=== PATIENT | male | born 2000 | race Caucasian/White ===

== ENCOUNTER 2020-04-10 07:46 | Emergency (ER) | payer OTHER, SELFPAY ==
--- NOTE | ~2020-04-10 | CT_ITS ---
EXAMINATION: CT abdomen pelvis w con EXAM DATE: 04/10/2020 10:30 INDICATION: Low abdominal pain. TECHNIQUE: Spiral CT of the abdomen and pelvis was performed without contrast. Axial, coronal and s agittal images were reviewed. The dose-length product (DLP) for this examination was 233.85 mGy-cm. The exposure was tailored according to patient size (auto mA exposure control), and iterative recons truction (ASIR) was used as additional dose reduction technique. There is no prior study for compari son. FINDINGS: There is mild periportal edema, nonspecific finding. The liver, spleen, adrenal glands and pancreas are otherwise unremarkable. Gallbladder is unremarkable. No biliary obstruction. Portal and splenic veins are patent. Kidneys enhance symmetrically. There is no hydronephrosis. The pros haynes is unremarkable. The bladder is unremarkable. There is no retroperitoneal or pelvic lymphadeno inés. The appendix is normal. The stomach and small bowel are unremarkable. There is moderate amount of c olonic stool. No free intraperitoneal gas. The heart is normal in size. There are no pericardial or pleural effusions. The lung bases are unremarkable. The bones are unremarkable. IMPRESSION: 1. Moderate amount of colonic stool. 2. Mild nonspecific periportal edema. Reviewed, dictated and finalized at location B.
[2020-04-10 07:51] VITALS: BP 110/67; PULSE 80; RESP 14; TEMP 36.7; O2SAT 100
--- NOTE | 2020-04-10 07:59 | ED.ABDPAIN ---
HPI - Abdominal Pain General Chief Complaint: Abdominal Pain Stated Complaint: abd pain Time Seen by Provider: 04/10/20 07:50 Source: patient Mode of arrival: ambulatory Limitations: no limitations History of Present Illness HPI narrative: This patient is a 19 year old male who presents for evaluation of lower abdominal pain. He states he woke up this morning with lower abdominal pain. This pain is worse when ever he stands up or stretches. He has not taken any medication for pain and he states he has minimal pain since he is laying still. He denies associated nausea, vomiting, fever, chills or diarrhea. His last bowel movement yesterday. MD elicited complaint: abdominal pain Onset (ago): hour(s) Location: pelvis Quality: cramping Radiation: none Exacerbating factors: movement Related Data Home Medications Medication Instructions Recorded Confirmed No Home Medications 04/10/20 04/10/20 Allergies Allergy/AdvReac Type Severity Reaction Status Date / Time No Known Allergies Allergy Verified 04/10/20 08:36 Review of Systems Review of Systems: All systems reviewed & are unremarkable except as noted in HPI and below Constitutional: Constitutional: Denies chills and Denies fever(s) Gastrointestinal: Gastrointestinal: Reports abdominal pain, Denies constipation, Denies diarrhea, Denies nausea and Denies vomiting Genitourinary: Genitourinary: Denies hematuria, Denies oliguria, Denies dysuria and Denies urinary frequency Musculoskeletal: Musculoskeletal: Denies back pain PMFSH Past Medical History Medical History (Updated 04/10/20 @ 10:57 by Erum Lemus MD) No significant medical problems Surgical History Surgical History (Updated 04/10/20 @ 08:00 by Erum Lemus MD) No pertinent past surgical history Family History Family History (Updated 12/01/17 @ 11:09 by DOCTOR UNKNOWN) Mother Patient's mother is in good health Father Patient's father is in good health Sibling Patient's brother is in good health Social History Social History Gender identity (if verbalized by the patient): Male Exam Narrative: Exam Narrative: GENERAL: Well-appearing, well-nourished, and in no acute distress. HEAD: Normocephalic, atraumatic EYES: PERRLA and EOMI, conjunctiva clear without discharge THROAT:Mucous membranes moist, Oropharynx normal without erythema, exudate, peritonsillar swelling or fluctuance NECK: Supple, without lymphadenopathy or mass RESPIRATORY: No respiratory distress, Airway patent, Respirations non-labored, Clear to auscultation without rales, rhonchi or wheeze HEART: Regular rate and rhythm. No murmur heard. Normal peripheral pulses. ABDOMEN: Soft, bilateral lower abdomen, nondistended, normal active bowel sounds. No masses. No rebound or guarding, No organomegaly. EXTREMITIES: No edema, normal strength with full range of motion. SKIN: Warm, dry, normal color without rash NEURO: Alert and oriented x3. CN 2-12 grossly intact. No focal deficits. PSYCH: Normal mood and affect. Course Reevaluation(s) Reevaluation #1: PAtient states he feels better. I have discussed with patient and family CT results showing constipation. Date: 04/10/20 Time: 10:54 Vital Signs Vital signs: Vital Signs Temperature 98.1 F 04/10/20 07:51 Pulse Rate 80 04/10/20 07:51 Respiratory Rate 14 04/10/20 07:51 Blood Pressure 110/67 04/10/20 07:51 Pulse Oximetry 100 04/10/20 07:51 Temperature 98.1 F 04/10/20 07:51 Pulse Rate 78 04/10/20 11:08 Respiratory Rate 18 04/10/20 11:08 Blood Pressure 110/59 L 04/10/20 11:08 Pulse Oximetry 98 04/10/20 11:08 MDM - Abdominal Pain Lab Data Attestation: I reviewed the patient's lab results. Result diagrams: 04/10/20 07:57 04/10/20 07:57 Labs: Lab Results 04/10/20 04/10/20 04/10/20 Range/Units 07:57 07:57 08:13 WBC 4.8 (4.5-10.0) K/mm3 RBC 5.51 (4.6-6.20) M/mm3
[2020-04-10 08:03] LABS: Basophils Percent Auto 0.6 % (0.2-1.2); Eosinophils Absolute Auto 0.1 K/mm3 (0-0.3); Eosinophils Percent Auto 2.9 % (0-4.4); Hematocrit 49.6 % (42.0-52.0); Hemoglobin 16.6 g/dL (14.0-18.0); Immature Granulocyte Absolute 0.01 K/mm3 (0.00-0.031); Immature Granulocyte Percent A 0.2 % (0-0.5); Lymphocytes Absolute Auto 1.51 K/mm3 (0.9-3.2); Lymphocytes Percent Auto 31.3 % (18.3-44.2); Mean Corpuscular HGB Conc 33.5 g/dl (32-36); Mean Corpuscular Hemoglobin 30.1 pg (26-34); Mean Platelet Volume 11.4 fl (7.4-10.4); Monocytes Absolute Auto 0.4 K/mm3 (0.1-0.6); Monocytes Percent Auto 8.7 % (2.6-8.5); Neutrophils Absolute Auto 2.7 K/mm3 (1.3-6.7); Neutrophils Percent Auto 56.3 % (45.5-73.1); Platelet Count Result 178 k/mm3 (150-375); Red Blood Count 5.51 M/mm3 (4.6-6.20); Red Cell Distribution Width 12.4 % (11.5-14.5); White Blood Count 4.8 K/mm3 (4.5-10.0)
[2020-04-10 08:15] LABS: Alanine Aminotransferase 15 U/L (4-50); Albumin Level 5.4 g/dL (3.7-5.6); Alkaline Phosphatase 71 U/L (58-237); Aspartate Amino Transferase 24 U/L (17-59); Bilirubin,Total 0.4 mg/dL (0.2-1.3); Blood Urea Nitrogen 16 mg/dL (8-21); Calcium 9.9 mg/dL (8.9-10.7); Carbon Dioxide 29 mmol/L (22-30); Chloride 101 mmol/L (98-107); Estimated CRCL calculation 97 ml/min; Estimated Glomerular Filt Rate > 60; Glucose 110 mg/dL (75-110); Lipase 60 U/L (23-300); Potassium 4.1 mmol/L (3.4-5.0); Sodium 140 mmol/L (134-143)
[2020-04-10 08:26] LABS: Add Urine Microscopic? YES; Appearance Urine Clear (Clear); Bilirubin Urine Negative (Negative); Blood Urine Negative (Negative); Color Urine Yellow (Yellow); Glucose Urine UA Negative (Negative); Ketones Urine Negative (Negative); Leukocyte Esterase Ur Trace LEU/UL (Negative); Mucus Urine Heavy /lpf; Nitrate Urine Negative (Negative); Protein Urine Negative (Negative); RBC Urine 0-2 /hpf (0-2); Squamous Epithelial Cell Urine Rare /hpf (Few); Urobilinogen Urine Negative mg/dL (<2.0)
[2020-04-10 08:27] LABS: Specific Grav Ur 1.031 (1.001-1.035)
[2020-04-10] MEDS: ONDANSETRON INJ 4 MG/2 ML VIAL IV PUSH (08:37)
[2020-04-10] MEDS: LACTATED RINGERS 1,000 ML 999 ML IV CONT (08:37)
[2020-04-10 09:32] VITALS: BP 108/55; PULSE 50; RESP 14; O2SAT 99
[2020-04-10 11:08] VITALS: BP 110/59; PULSE 78; RESP 18; O2SAT 98
== END 2020-04-10 11:09 | disposition home or self-care (01) ==
PROVIDERS: Emergency Provider General Practice
DX: K59.00 Constipation, unspecified (principal)
CPT/HCPCS: 36415; 74177; 80053; 81001; 83690; 85025; 96361; 96374; 99284; J2405; J7120; Q9967